=== PATIENT | male | born 1965 | race Caucasian/White ===

== ENCOUNTER 2020-07-09 09:16 | Emergency (ER) | payer OTHER ==
[2020-07-09] MEDS ORDERED: Sodium Chloride 0.9% 10 ML Syringe FLUSH PRN (09:34)
[2020-07-09] MEDS ORDERED: Sodium Chloride 0.9% 2.5 ML Syringe FLUSH PRN (09:34)
[2020-07-09] MEDS ORDERED: Aspirin 81 MG Tab.Chew PO ONE (09:36)
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
[2020-07-09 09:56] LABS: BLOOD UREA NITROGEN,BUN 12 mg/dL (7.0-18.0); CARBON DIOXIDE,CO2 24.9 mmol/L (21.0-32.0); CHLORIDE,CL 105 mmol/L (98-107); GLUCOSE RANDOM 204 mg/dL (74-106); POTASSIUM,K 3.9 mmol/L (3.5-5.1); SODIUM,NA 139 mmol/L (136-148)
--- NOTE | 2020-07-09 10:44 | CR ---
INDICATION: Chest pain. COMPARISON: None. TECHNIQUE: Two-view chest. FINDINGS: Normal size cardiac silhouette. Clear lung marcano with no evidence of acute pneumonic infiltrates or CHF. The medial end of the right clavicle is missing with multiple surgical clips/jasmeet in this location; did this patient have previous surgical intervention in this area?. No pneumothorax or pleural effusion. IMPRESSION: No acute pathology. Dictated by Hardik Ballard MD @ Jul 09 2020 10:41AM Signed by Dr. Hardik Ballard @ Jul 09 2020 10:43AM
[2020-07-09] MEDS ORDERED: Iopamidol 755 MG/ML 500 ML Multipack Bottle IVPUSH ONE (11:29)
--- NOTE | 2020-07-09 12:05 | CT ---
INDICATION: Patient with chest pain COMPARISON: None TECHNIQUE: : CT examination of the chest was performed with the uneventful intravenous administration of 100 cc of as view 370 while thin axial sections were obtained from above the apices of the lungs to the lung bases. Please note that all CT scans at this facility use dose modulation, iterative reconstruction, and/or weight-based dosing when appropriate to reduce radiation dose to as low as reasonably achievable. FINDINGS: : HEART and MEDIASTINUM: The heart size is normal. There is no mediastinal or hilar adenopathy or mass. There is no pericardial effusion. PULMONARY ARTERIAL CIRCULATION: There is no visible intraluminal filling defect to suggest pulmonary embolus. LUNGS: The lungs show a bilateral distribution of patchy ground glass. I believe that this is more likely due to low lung volumes and motion rather than true ground-glass opacities. However, if there is concern for viral pneumonia, that diagnosis should be considered clinically. PLEURAL SPACES: There is no pleural effusion, pneumothorax or pleural based mass. VISUALIZED UPPER ABDOMEN: Cholelithiasis. Findings suggesting cirrhosis. The spleen appears enlarged suggesting portal hypertension. No visible regional ascites. OSSEOUS STRUCTURES: Age-appropriate appearance. No acute fracture or destructive process.There are venous collaterals in the anterolateral right chest wall. The exact etiology of these is not determined on this exam TUBES and LINES: None. IMPRESSION: 1. There is no finding of pulmonary embolus 2. Patchy ground-glass felt to be due to multifocal atelectasis due to low lung volumes and motion. An inflammatory process is possible but should only be considered in the appropriate clinical setting. 3. Cholelithiasis. Probable cirrhosis. Probable portal hypertension. Venous collaterals involving the chest wall of uncertain origin Please note that all CT scans at this facility use dose modulation, iterative reconstruction, and/or weight-based dosing when appropriate to reduce radiation dose to as low as reasonably achievable. Dictated by Floyd Herrera MD @ Jul 09 2020 11:55AM Signed by Dr. Floyd Herrera @ Jul 09 2020 12:03PM
== END 2020-07-09 13:32 | disposition home or self-care (01) ==
LOC: MW.ED 09:16
DX: R07.81 Pleurodynia (principal); Z20.828 Contact with and (suspected) exposure to other viral communicable diseases; E11.9 Type 2 diabetes mellitus without complications; E03.9 Hypothyroidism, unspecified; Z79.899 Other long term (current) drug therapy; Z79.4 Long term (current) use of insulin
CPT/HCPCS: 36415; 71046; 71275; 80048; 84484; 85025; 85379; 87635; 93005; 99284; A9270; Q9967; 93010; U0002